=== PATIENT | female | born 1955 | race Caucasian/White ===

== ENCOUNTER 2020-06-27 13:59 | Outpatient (CLI) | payer MEDICARE, OTHER ==
[~2020-06-27] VITALS: Ht 157.5 cm; Wt 104.3 kg
[2020-06-27 14:31] LABS: ABG BASE EXCESS 1.5 mmol/L (-2.0-2.0); ABG HCO3 26.5 mmol/L (22.0-26.0); ABG OXYGEN SATURATION 96.1 % (94-97); ABG PCO2 (T) 43.1 mmHg (32.0-45.0); ABG PO2 (T) 78.7 mmHg (75.0-100.0); ALLEN'S TEST POSITIVE; FCOHb 0.8 % (0.0-3.9); FMetHb 0.2 % (0.0-1.5); FO2Hb 95.1 % (94-97); TOTAL HEMOGLOBIN 15.9 G/dl (12.0-16.0)
[2020-06-27] MEDS ORDERED: albuterol 2.5 MG/3 ML nebule NEB ONE (14:55)
== END 2020-06-27 23:59 | disposition home or self-care (01) ==
LOC: RT 13:59
PROVIDERS: ATTEND Internal Medicine Cardiovascular Disease
DX: R06.02 Shortness of breath (principal)
CPT/HCPCS: 36600; 82803; 85018; 94060; 94727; 94729; 94760

== ENCOUNTER 2022-10-28 09:39 | Outpatient (CLI) | payer MEDICARE, OTHER | END 2022-10-28 23:59 | disposition home or self-care (01) | LOC: CARD DIAG 09:39 | PROVIDERS: ATTEND Internal Medicine Cardiovascular Disease | DX: I34.81 Nonrheumatic mitral (valve) annulus calcification (principal); I51.7 Cardiomegaly; R06.02 Shortness of breath; R53.83 Other fatigue | CPT/HCPCS: 93306 ==